=== PATIENT | female | born 2000 | race African-American/Black ===

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

== ENCOUNTER 2021-09-15 16:23 | Emergency (ER) | payer OTHER | END 2021-09-15 17:05 | disposition home or self-care (01) | LOC: NAV ERS 16:23 | DX: H65.92 Unspecified nonsuppurative otitis media, left ear (principal); I10 Essential (primary) hypertension; D64.9 Anemia, unspecified; F17.210 Nicotine dependence, cigarettes, uncomplicated | CPT/HCPCS: 99283 ==